=== PATIENT | male | born 2000 | race Asian ===

== ENCOUNTER 2024-03-03 00:39 | Emergency (ER) | payer SELFPAY ==
[~2024-03-03] VITALS: Ht 175.3 cm; Wt 56.0 kg
[2024-03-03 00:44] VITALS: O2SAT 96
[2024-03-03 01:05] VITALS: BP 129/82; PULSE 68; RESP 16; TEMP 98.2; O2SAT 100
[2024-03-03 01:23] LABS: CLARITY URINE TURBID (CLEAR); COLOR URINE YELLOW (YELLOW); GLUCOSE URINE NEGATIVE (NEGATIVE); KETONES URINE 3+ (NEGATIVE); LEUKOCYTE ESTERASE URINE NEGATIVE (NEGATIVE); NITRITE URINE NEGATIVE (NEGATIVE); OCCULT BLOOD URINE NEGATIVE (NEGATIVE); PROTEIN URINE TRACE (NEGATIVE); SPECIFIC GRAVITY URINE 1.026 (1.005-1.030)
[2024-03-03 02:20] LABS: SQUAMOUS EPITHELIAL CELL URINE NONE SEEN /lpf (RARE/1+)
[2024-03-03 02:21] LABS: BACTERIA URINE NONE SEEN; RBC URINE NONE SEEN /hpf (0-2); WBC URINE NONE SEEN /hpf (0-2)
[2024-03-03 02:22] LABS: AMORPHOUS SEDIMENT URINE 3+ /lpf
[2024-03-03] MEDS ORDERED: ONDANSETRON HCL 4MG TABLET PO ONE (03:45)
[2024-03-03] MEDS ORDERED: KETOROLAC 15MG/ML VIAL IM ONE (03:45)
== END 2024-03-03 04:37 | disposition left against medical advice (07) ==
LOC: ER 01:45
DX: R10.9 Unspecified abdominal pain (principal); Z53.21 Procedure and treatment not carried out due to patient leaving prior to being seen by health care provider
CPT/HCPCS: 81003